=== PATIENT | male | born 2000 | race Caucasian/White ===

== ENCOUNTER 2021-05-19 17:15 | Emergency (ER) | payer OTHER ==
[~2021-05-19] VITALS: Ht 180.3 cm; Wt 75.4 kg
[2021-05-19 17:15] VITALS: BP 122/68
--- NOTE | 2021-05-19 17:47 | PHYS DOC ---
Past History Past Surgical History: No Surgical History (KIKO SPARROW APRN) Alcohol Use: Occasionally (KIKO SPARROW APRN) General Adult EDM: Chief Complaint: FLU SYMPTOM HPI: HPI: Patient is a 21-year-old male who presents to the emergency department today for shortness of breath, nonproductive cough, nausea, fatigue and a fever of 100 degrees along with body aches started 3 days ago. Patient denies any chest pain, sick exposures, vomiting. He is not vaccinated for COVID-19. He reports that he took Aleve today for his symptoms. (KIKO SPARROW APRN) Review of Systems: Review of Systems: Constitutional: negative unless reported in HPI Eyes: negative unless reported in HPI HENT: negative unless reported in HPI Respiratory: negative unless reported in HPI Cardiovascular: negative unless reported in HPI GI: negative unless reported in HPI : negative unless reported in HPI Musculoskeletal: negative unless reported in HPI Integument: negative unless reported in HPI Neurologic: negative unless reported in HPI Endocrine: negative unless reported in HPI Lymphatic: negative unless reported in HPI Psychiatric: negative unless reported in HPI (KIKO SPARROW APRN) Allergies: Allergies: Allergies Coded Allergies Type Severity Reaction Last Updated Verified acetaminophen Allergy Intermediate 05/19/21 Yes (KIKO SPARROW APRN) Physical Exam: PE: Constitutional: Well developed, well nourished, no acute distress, non-toxic appearance. [] HENT: Normocephalic, atraumatic, bilateral external ears normal, oropharynx m oist, no oral exudates, nose normal. [] Eyes: PERRL, EOMI, conjunctiva normal, no discharge. [] Neck: Normal range of motion, no stridor Cardiovascular:Heart rate regular rhythm, no murmur [] Lungs & Thorax: Bilateral breath sounds clear to auscultation [] Abdomen: Bowel sounds normal, soft, no tenderness, no masses, no pulsatile masses. [] Skin: Warm, dry, no erythema, no rash. [] Back: Range of motion Extremities: No tenderness, no cyanosis, no clubbing, ROM intact, no edema. [] Neurologic: Alert and oriented X 3, normal motor function, normal sensory function, no focal deficits noted. [] Psychologic: Affect normal, judgement normal, mood normal. [] (KIKO SPARROW APRN) Current Patient Data: Labs: Laboratory Tests Test 05/19/21 17:42 Influenza Type A (Rapid) Negative Influenza Type B (Rapid) Negative SARS-CoV-2 Antigen (Rapid) Negative Current Medications Medications (Trade) Dose Ordered Sig/Magdaleno Route PRN Reason Start Time Stop Time Status Last Admin Dose Admin Ibuprofen (Motrin) 600 mg 1X ONCE PO 05/19/21 18:00 05/19/21 18:01 DC 05/19/21 18:00 Ondansetron HCl (Zofran Odt) 4 mg 1X ONCE PO 05/19/21 18:15 05/19/21 18:16 DC 05/19/21 18:07 Vital Signs: Vital Signs Date Time Temp Pulse Resp B/P (MAP) Pulse Ox O2 Delivery O2 Flow Rate FiO2 05/19/21 17:15 100.9 111 18 122/68 (86) 98 Room Air (KIKO SPARROW APRN) EKG: EKG: [] (KIKO SPARROW APRN) Radiology/Procedures: Radiology/Procedures: []PROCEDURE: PORTABLE CHEST 1V EXAM: Chest, single view. HISTORY: Nausea. Cough. Shortness of air. COMPARISON: None. FINDINGS: A frontal view of the chest is obtained. There is no infiltrate, pleural effusion or pneumothorax. The heart is normal in size. IMPRESSION: No acute pulmonary finding. Electronically signed by: Diann Mesa MD (05/19/2021 5:51 PM) [facility] DICTATED AND SIGNED BY: DIANN MESA MD DATE: 05/19/21 359 CC: MARILYN RUEDA; KIKO SPARROW APRN ~MTH0 0 (KIKO SPARROW APRN) Heart Score: C/O Chest Pain: No Risk Factors: Risk Factors: DM, Current or recent (<one month) smoker, HTN, HLP, family history of CAD, obesity. Risk Scores: Score 0 - 3: 2.5% MACE over next 6 weeks - Discharge Home Score 4 - 6: 20.3% MACE over next 6 weeks - Admit for Clinical Observation Score 7 - 10: 72.7% MACE over next 6 weeks - Early Invasive Strategies (KIKO SPARROW APRN) Course & Med Decision Making: Course & Med Decision Making Pertinent Labs and Imaging studies reviewed. (See chart for details) [] Patient presents to the emergency department today for shortness of breath, nonproductive cough, nausea, fatigue, fever and body aches. Patient has low- grade fever and mild tachycardia which was treated with ibuprofen. Patient will be tested for influenza and COVID. Due to shortness of breath, he will receive a chest x-ray to rule out pneumonia. Chest x-ray unremarkable. Negative influenza and Covid testing. Patient educated on symptomatic treatment. Horacio hammond's heart rate has improved and is 84 bpm. Patient's physical exam is reassuring, his lung sounds are clear and he is in no acute distress. I discussed with patient all findings and diagnostic testing as well as the need to follow-up with PCP for further evaluation and treatment or return to the ER if any new or worsening symptoms. Strict return precautions were also discussed at length. Patient voiced understanding and agreement with the plan. Patient is hemodynamically stable at the time of disposition. (KIKO SPARROW APRN) Dragon Disclaimer: Dragon Disclaimer: This electronic medical record was generated, in whole or in part, using a voice recognition dictation system. (KIKO SPARROW APRN) Departure Departure: Impression: Primary Impression: Viral syndrome Disposition: HOME / SELF CARE / HOMELESS Condition: GOOD Referrals: MARILYN RUEDA (PCP) Patient Instructions: Fever, Adult Additional Instructions: You were seen in the emergency department today for shortness of breath, nausea, fatigue, fever, body aches and a cough. You had a negative Covid and influenza test. Your chest x-ray did not show any acute findings. Please increase your fluids and rest. You are being discharged home with nausea medication you can take as needed. Take Tylenol and ibuprofen for any pain or fevers. Follow-up with your primary care provider on Thursday regarding your ER visit. Return to the emergency department if you develop shortness of breath, intractable nausea or vomiting, high fevers refractory to treatment, chest pain, severe weakness. Scripts Ondansetron (ONDANSETRON ODT) 4 Mg Tab.rapdis 1 TAB PO PRN Q6-8HRS for nausea for 7 Days, #28 TAB 0 Refills Prov: KIKO SPARROW APRN 05/19/21 Dragon Disclaimer This chart was dictated in whole or in part using Voice Recognition software in a busy, high-work load, and often noisy Emergency Department environment. It may contain unintended and wholly unrecognized errors or omissions. (THALIA TORRES MD) Attending Signature Attending Signature I have participated in the care of this patient and I have reviewed and agree with all pertinent clinical information above including history, exam, and recommendations. (THALIA TORRES MD) KIKO SPARROW APRN May 19, 2021 17:47 THALIA TORRES MD May 19, 2021 22:26
--- NOTE | 2021-05-19 17:53 | RAD ---
EXAM: Chest, single view. HISTORY: Nausea. Cough. Shortness of air. COMPARISON: None. FINDINGS: A frontal view of the chest is obtained. There is no infiltrate, pleural effusion or pneumo thorax. The heart is normal in size. IMPRESSION: No acute pulmonary finding. Electronically signed by: Diann Burdick MD (05/19/2021 5:51 PM) [facility]
[2021-05-19] MEDS ORDERED: IBUPROFEN 600 MG TABLET. PO ONE (18:00)
[2021-05-19] MEDS ORDERED: ONDANSETRON ODT 4 MG TAB.RAPDIS PO ONE (18:15)
[2021-05-19 18:25] LABS: INFLUENZA A PATIENT NEGATIVE (NEGATIVE); INFLUENZA B PATIENT NEGATIVE (NEGATIVE)
[2021-05-19] MEDS ORDERED: ONDA4TAB12 PO (18:40)
== END 2021-05-19 18:40 | disposition home or self-care (01) ==
LOC: ER 17:15
DX: B34.9 Viral infection, unspecified (principal); Z20.822 Contact with and (suspected) exposure to COVID-19; Z88.8 Allergy status to other drugs, medicaments and biological substances
CPT/HCPCS: 71045; 87428; 99284; Q0162